=== PATIENT | female | born 1980 | race Caucasian/White ===

== ENCOUNTER 2019-05-06 13:40 | Emergency (ER) | payer OTHER ==
[~2019-05-06] VITALS: Ht 152.4 cm; Wt 68.0 kg
[~2019-05-06 13:40] MED LIST: AZITHROMYCIN 2250 MG PO; FLEXERIL PO; IBUPROFEN 800800 M1 PO; MEDROLDOSEPACK PO; MULTIVITAMINS; NAPROSYN500 MG PO; NOHOMEMEDICATIONS; NORCO 5-325 TA1 EACH PO; PENICILLIN VK250 MG PO; PRENATAL 1 PLU1 EACH PO; ULTRAM 50MG TAB50 MG PO; ZOFRAN4 MG PO
[2019-05-06] MEDS ORDERED: PROZAC10 MG PO (13:47)
[2019-05-06] MEDS ORDERED: NORCO 5-325 TA1 EAC1 PO (14:17)
[2019-05-06 14:34] VITALS: BP 144/87
== END 2019-05-06 14:35 | disposition home or self-care (01) ==
LOC: M.ERS 13:40
DX: S93.401A Sprain of unspecified ligament of right ankle, initial encounter (principal); Z87.442 Personal history of urinary calculi; Z98.890 Other specified postprocedural states; W10.9XXA Fall (on) (from) unspecified stairs and steps, initial encounter; Y92.89 Other specified places as the place of occurrence of the external cause; Y93.89 Activity, other specified; Y99.8 Other external cause status